=== PATIENT | female | born 1960 | race Two or more races ===

== ENCOUNTER 2016-11-17 09:20 | Day surgery (SDC) | payer OTHER ==
[~2016-11-17 09:20] MED LIST: LACTATED RINGERS 1,000 ML IV SCH
[2016-11-17] MEDS ORDERED: LACTATED RINGERS 1,000 ML ONE (09:28)
[2016-11-17] MEDS ORDERED: IV START KIT ONE (09:28)
[2016-11-17] MEDS ORDERED: PROPOFOL 20 ML IV ONE ×2 (09:54→10:27)
[2016-11-17] MEDS ORDERED: LIDOCAINE 2% (PRES FREE) 5 ML VIAL ONE (09:55)
== END 2016-11-17 11:00 | disposition home or self-care (01) ==
LOC: SDC 09:20
PROVIDERS: ATTEND Internal Medicine Gastroenterology
PROC: 0DJD8ZZ Inspection of Lower Intestinal Tract, Via Natural or Artificial Opening Endoscopic (ICD-10-PCS; principal; 2016-11-17)
DX: Z12.11 Encounter for screening for malignant neoplasm of colon (principal); Z86.010 Personal history of colon polyps; Z87.891 Personal history of nicotine dependence; I10 Essential (primary) hypertension
CPT/HCPCS: 45378; J7120